=== PATIENT | female | born 1985 | race American Indian/Alaskan Native ===

== ENCOUNTER 2016-07-04 14:41 | Emergency (ER) | payer SELFPAY ==
[2016-07-04] MEDS ORDERED: BOOSTRIX IM ONE (17:14)
[2016-07-04] MEDS ORDERED: TORADOL IM ONE (17:14)
[2016-07-04] MEDS ORDERED: LET TOPICAL TP ONE (17:14)
[2016-07-04] MEDS ORDERED: XYLOCAINE 1%/ EPI 1:100,000 INFILTRATI ONE (17:14)
--- NOTE | 2016-07-04 18:46 | Emergency Department Report ---
Entered by TRACY SWANSON, acting as scribe for LAY VACA PA. - General Chief complaint: Skin/Abscess/Foreign Body Stated complaint: PAINFUL BOIL/INFECTED BITE Source: patient, family Mode of arrival: Ambulatory Limitations: No Limitations - History of Present Illness Initial comments: 30 year old female with a PMHx of PTH with first presents to the ED c/ o an abscess on right lower abdomen that began 3 days ago. Patient reports that she is unsure if she was bitten by an insect. Rates pain a 10/10 in severity. Associated symptom includes pain to abscess area, chill, and generalized weakness, but she denies fever. Reports applying warm compresses at home with no relief. Denies tobacco use and EtOH consumption. LMP 06/12/2014. complaint: abscess/boil (right lower abdomen) Onset/Timin -: days(s) Tetanus Up to Date: unsure Location: generalized (right lower quadrant abdomen) Severity: severe Severity scale (0 -10): 10 Quality: sharp, other (Throbbing) Consistency: constant Improves with: immobilization Worsens with: palpation, movement, other (warm compresses with no relief) Context: none Associated symptoms: denies other symptoms, chills Treatments Prior to Arrival: other (warm compresses and also used razor blade to open area) - Related Data Previous Rx's Medication Instructions Recorded Last Taken Type HYDROcodone/APAP 5-325 [[place] 1 each PO Q6HR PRN #12 tablet 07/04/16 Unknown Rx 5/325] Ibuprofen [Motrin] 600 mg PO Q8H PRN #15 tablet 07/04/16 Unknown Rx Sulfamethoxazole/Trimethoprim 1 each PO BID #20 tablet 07/04/16 Unknown Rx [Bactrim DS TAB] Allergies Allergy/AdvReac Type Severity Reaction Status Date / Time Penicillins Allergy Mild Swelling Verified 03/19/13 18:10 Abscess Boil HPI - HPI Chief Complaint: Skin/Abscess/Foreign Body Stated Complaint: PAINFUL BOIL/INFECTED BITE Duration: 3 Days Location: Abdomen (right lower) Severity: Moderate History: Yes Pain (right lower abdomen), Yes Insect Bite, No Fever, No Purulent Drainage, No Numbness, No Foreign Body, No Previous History Home Medications: Previous Rx's Medication Instructions Recorded Last Taken Type HYDROcodone/APAP 5-325 [[place] 1 each PO Q6HR PRN #12 tablet 07/04/16 Unknown Rx 5/325] Ibuprofen [Motrin] 600 mg PO Q8H PRN #15 tablet 07/04/16 Unknown Rx Sulfamethoxazole/Trimethoprim 1 each PO BID #20 tablet 07/04/16 Unknown Rx [Bactrim DS TAB] Allergies/Adverse Reactions: Allergies Allergy/AdvReac Type Severity Reaction Status Date / Time Penicillins Allergy Mild Swelling Verified 03/19/13 18:10 ED Review of Systems Comment: All other systems reviewed and negative Constitutional: chills, weakness (generalized) ENT: congestion. denies: throat pain Respiratory: no symptoms reported Cardiovascular: denies: chest pain, palpitations, edema, syncope Gastrointestinal: abdominal pain (right lower due to abscess). denies: nausea, vomiting, diarrhea Musculoskeletal: denies: back pain, joint swelling, arthralgia Skin: other (2x2 abscess on right lower abdomen with erythema and induration) Neurological: denies: headache ED Past Medical Hx - Past Medical History Previous Medical History?: Yes Hx Hypertension: (hx of PIH w/first ) Hx Diabetes: No Hx Deep Vein Thrombosis: No Hx Renal Disease: No Hx Sickle Cell Disease: No Hx Seizures: No Hx Asthma: No Hx HIV: No - Surgical History Past Surgical History?: No - Family History Family history: hypertension - Social History Smoking Status: Never Smoker Substance Use Type: None - Medications Home Medications: Home Medications Medication Instructions Recorded Confirmed Last Taken Type HYDROcodone/APAP 5-325 [[place] 1 each PO Q6HR PRN #12 tablet 07/04/16 Unknown Rx 5/325] Ibuprofen [Motrin] 600 mg PO Q8H PRN #15 tablet 07/04/16 Unknown Rx Sulfamethoxazole/Trimethoprim 1 each PO BID #20 tablet 07/04/16 Unknown Rx [Bactrim DS TAB] ED Physical Exam - General Limitations: No Limitations General appearance: alert, in no apparent distress - Head Head exam: Present: atraumatic, normocephalic - Eye Eye exam: Present: normal appearance, EOMI Pupils: Present: normal accommodation - ENT ENT exam: Present: normal exam, normal orophraynx, mucous membranes moist, TM's normal bilaterally, normal external ear exam - Neck Neck exam: Present: normal inspection, full ROM. Absent: tenderness, lymphadenopathy - Respiratory Respiratory exam: Present: normal lung sounds bilaterally. Absent: respiratory distress, chest wall tenderness - Cardiovascular Cardiovascular Exam: Present: regular rate, normal rhythm, normal heart sounds - GI/Abdominal GI/Abdominal exam: Present: soft, tenderness (right lower abdomen around abscess ), normal bowel sounds, other (right lower abdominal erythema, 2x2 cm abscess with induration and point of entry noted to center of abscess). Absent: distended, guarding, rebound, rigid - Extremities Exam Extremities exam: Present: normal inspection, full ROM, normal capillary refill. Absent: tenderness, pedal edema, joint swelling, calf tenderness - Back Exam Back exam: Present: normal inspection, full ROM. Absent: tenderness, CVA tenderness (R), CVA tenderness (L), muscle spasm, paraspinal tenderness, vertebral tenderness, rash noted - Neurological Exam Neurological exam: Present: alert, oriented X3, normal gait, reflexes normal. Absent: motor sensory deficit - Psychiatric Psychiatric exam: Present: normal affect, normal mood - Skin Skin exam: Present: warm, dry, intact, erythema (right lower abdomen), other ( 2x2 cm abscess with induration and point of entry noted to center of abscess). Absent: rash, abrasion, ecchymosis - Expanded Skin Exam Expanded Type of lesion: Present: abscess Distribution of rash: abdomen (lower quadrant abdomen) Description of rash: Present: size (2 x 2 centimeter), tenderness, erythematous , swelling, fluctuant, indurated. Absent: crusting, discharge ED Course Vital Signs 07/04/16 14:47 Temperature 98.2 F Pulse Rate 82 Respiratory 20 Rate Blood Pressure 108/67 O2 Sat by Pulse 100 Oximetry - Reevaluation(s) Reevaluation #1: 07/04/16 18:39 given Toradol 60 mg IM prior to procedure. Topical LET applied site for 10 minutes. See procedure note for details. - I & D Right Lower Abdomen Type of Procedure: Complex Site: right lower quadrant abdomen Blade Size: topical let applied to site I & D Procedure: betadine prep, sterile drapes applied, sterile dressing applied , gauze wick placed ED Medical Decision Making - Medical Decision Making ED Course: Patient received Toradol 60 mg IM and emergency room prior to incision and drainage of abscess. Her tetanus shot was updated as she was unsure when her last tetanus vaccine was. See procedure note for details and incision and drainage. Instructed to patient that she needs to return in 4 days to have packing removed. Condition discharged home with prescription for Calypso, Motrin and Bactrim. ED Disposition Clinical Impression: Cellulitis and abscess of trunk, Encounter for incision and drainage procedure Disposition: DISCHARGED TO HOME OR SELFCARE Is pt being admited?: No Does the pt Need Aspirin: No Condition: Stable Instructions: Abscess Incision and Drainage (ED), Cellulitis (ED) Additional Instructions: keep affected area clean and dry. Can apply warm compresses decided 3-4 times a day to facilitate soft and drainage of remainder of pus. Take Antibiotic as prescribed. Do not drive or operative heavy machinery while on Calypso as this medication will cause drowsiness. return to emergency room in 4 days for removal of packing and reevaluation of abscess. Prescriptions: HYDROcodone/APAP 5-325 [[place] 5/325] 1 each PO Q6HR PRN #12 tablet PRN Reason: Pain Ibuprofen [Motrin] 600 mg PO Q8H PRN #15 tablet PRN Reason: Pain Sulfamethoxazole/Trimethoprim [Bactrim DS TAB] 1 each PO BID #20 tablet Referrals: PRIMARY CARE,MD [Primary Care Provider] - 3-5 Days Your, PCP [Other] - 2-3 Days Forms: Work/School Release Form(ED) This documentation as recorded by the KIKI terrazas JASMINE,accurately reflects the service I personally performed and the decisions made by me,LAY VACA PA.
[2016-07-04 18:57] VITALS: BP 116/58
== END 2016-07-04 18:56 | disposition home or self-care (01) ==
LOC: ED 14:41
DX: L02.211 Cutaneous abscess of abdominal wall (principal); Z88.0 Allergy status to penicillin
CPT/HCPCS: 10061; 90471; 90715; 96372; 99282; J1885

== ENCOUNTER 2016-07-08 14:32 | Emergency (ER) | payer SELFPAY ==
[2016-07-08 14:51] VITALS: BP 107/76
--- NOTE | 2016-07-09 22:07 | Emergency Department Report ---
Entered by TRACY SWANSON, acting as scribe for JOHNNY JAY NP. ED Recheck HPI - General Chief Complaint: Laceration/Recheck/Suture Stated Complaint: WOUND ASSESSMENT Time Seen by Provider: 07/08/16 17:16 Source: patient Mode of arrival: Ambulatory Limitations: No Limitations - History of Present Illness Initial Comments: 30 year old female with a PMHx of PTH during her first presents to the ED c/o abscess rechecked that began 4 days ago. Patient was seen in this ED on 07/04/2016 to have an abscess on her right lower abdomen lanced and packed. She was prescribed Bactrim antibiotics BID for 10 days, and Hydrocodone and Motrin for pain. Associated symptom include aching pain around affected area, purulent drainage, and slight bleeding, but she denies fever, chills, nausea, vomiting, numbness, tingling, and SOB. Rates right lower abdomen pain a 1/10 in severity. In the ED, the dressings does not appear to have any purulent drainage present. LMP 07/04/2016. Allergic to penicillins. Complaint: wound re-check (07/04/2016) Onset/Timin -: days(s) Initial Visit For: abscess (right lower abdomen) Returns Today for: wound recheck (right lower abdomen) Symptoms Since Prior Visit: no new symptoms, improved Context: planned re-check Associated Symptoms: abdominal pain (right lower abdominal pain due to abscess) . denies: fever, chills, chest pain, shortness of breath, rash, nasuea, other ( nausea, vomiting, numbness, and tingling, but reports minimal bleeding and purulent drainage from abscess) Treatments Prior to Arrival: dressings, other (bactrim antibiotics) - Related Data Previous Rx's Medication Instructions Recorded Last Taken Type HYDROcodone/APAP 5-325 [[place] 1 each PO Q6HR PRN #12 tablet 07/04/16 Unknown Rx 5/325] Ibuprofen [Motrin] 600 mg PO Q8H PRN #15 tablet 07/04/16 Unknown Rx Sulfamethoxazole/Trimethoprim 1 each PO BID #20 tablet 07/04/16 Unknown Rx [Bactrim DS TAB] Allergies Allergy/AdvReac Type Severity Reaction Status Date / Time Penicillins Allergy Mild Swelling Verified 03/19/13 18:10 ED Review of Systems Comment: All other systems reviewed and negative Constitutional: denies: chills, fever, other (tingling) Respiratory: denies: orthopnea, shortness of breath, SOB with exertion, SOB at rest Cardiovascular: denies: chest pain, dyspnea on exertion, orthopnea Gastrointestinal: denies: nausea, vomiting Skin: other (minimal bleeding adn purulent drainage from abscess on right lower abdomen). denies: rash Neurological: denies: numbness ED Past Medical Hx - Past Medical History Previous Medical History?: Yes Hx Hypertension: (hx of PIH w/first ) Hx Diabetes: No Hx Deep Vein Thrombosis: No Hx Renal Disease: No Hx Sickle Cell Disease: No Hx Seizures: No Hx Asthma: No Hx HIV: No Additional medical history: Boil/abscess - Surgical History Past Surgical History?: No - Social History Smoking Status: Never Smoker Substance Use Type: Alcohol, Prescribed - Medications Home Medications: Home Medications Medication Instructions Recorded Confirmed Last Taken Type HYDROcodone/APAP 5-325 [[place] 1 each PO Q6HR PRN #12 tablet 07/04/16 Unknown Rx 5/325] Ibuprofen [Motrin] 600 mg PO Q8H PRN #15 tablet 07/04/16 Unknown Rx Sulfamethoxazole/Trimethoprim 1 each PO BID #20 tablet 07/04/16 Unknown Rx [Bactrim DS TAB] ED Physical Exam - General Limitations: No Limitations General appearance: alert, in no apparent distress - Head Head exam: Present: atraumatic, normocephalic - Eye Eye exam: Present: normal appearance, EOMI Pupils: Present: normal accommodation - ENT ENT exam: Present: normal exam, mucous membranes moist - Neck Neck exam: Present: normal inspection, full ROM - Respiratory Respiratory exam: Present: normal lung sounds bilaterally. Absent: respiratory distress - Cardiovascular Cardiovascular Exam: Present: regular rate, normal rhythm - GI/Abdominal GI/Abdominal exam: Present: soft, other (slight purulent drainage from abscess on right lower abdomen). Absent: distended, tenderness, guarding, rebound, rigid - Extremities Exam Extremities exam: Present: normal inspection, full ROM - Back Exam Back exam: Present: normal inspection, full ROM - Neurological Exam Neurological exam: Present: alert, oriented X3 - Psychiatric Psychiatric exam: Present: normal affect, normal mood - Skin Skin exam: Present: warm, dry, intact, other (slight purlent drainage from abscess on right lower abdomen). Absent: rash, erythema (slight purulent drainage in abscess on right lower abdomen) ED Course Vital Signs 07/08/16 14:47 Temperature 98.5 F Pulse Rate 66 Respiratory 20 Rate Blood Pressure 107/76 O2 Sat by Pulse 100 Oximetry ED Recheck MDM - Medical Decision Making This is a 30-year-old female that presents with a recheck of an I&D in the right lower abdomen 1- after removing iodoform packing there were still minimal to moderate pus noted. 2- I irrigated the wound with normal saline with 40 mL. Patient daughter well with no signs of any distress noted. 3- I reapplied new iodoform one fourth to the area and instructed patient to remove in 48 hours. 4- patient stated still taking Bactrim as prescribed during initial encounter in the ER. 5- at the time of discharge the patient denies seeing toxic or ill appearance. Patient agrees to discharge plan and treatment. No further questions noted. ED Disposition Clinical Impression: Encounter for wound re-check, Change or removal of wound packing Disposition: DISCHARGED TO HOME OR SELFCARE Is pt being admited?: No Does the pt Need Aspirin: No Condition: Stable Instructions: Acute Wound Care (ED) Additional Instructions: Please keep area clean and dry. Remove packing in 48 hours. If Symptoms worsen and more pus, redness, inflammation, fever or chills noted report back to emergency room. Referrals: PRIMARY CARE,MD [Primary Care Provider] - 3-5 Days This documentation as recorded by the KIKI terrazas JASMINE,accurately reflects the service I personally performed and the decisions made by ,JOHNNY JAY, JONE.
== END 2016-07-08 18:08 | disposition home or self-care (01) ==
LOC: ED 14:32
DX: Z48.01 Encounter for change or removal of surgical wound dressing (principal); Z88.0 Allergy status to penicillin

== ENCOUNTER 2017-01-12 09:05 | Emergency (ER) | payer SELFPAY ==
--- NOTE | 2017-01-12 11:54 | Emergency Department Report ---
ED ENT HPI - General Chief complaint: Earache Stated complaint: LEFT EAR PAIN Time Seen by Provider: 01/12/17 11:09 Source: patient Mode of arrival: Ambulatory Limitations: No Limitations - History of Present Illness Initial comments: This is a 31-year-old female nontoxic, well nourished in appearance, no acute signs of distress presents to the ED complaining of left earache and sore throat 1 week. Patient describes sore throat as aching level is 6 out of 10. Patient describes earache as aching with level of 10/10. Patietn also states has a dry nonproductive cough. Patient denies shrotness of breathe, decreased hearing, nausea, vomiting, chest pain, mastoid tenderness, tragus pain, ear discharge, headache, stiff neck, numbness or tingling. Patient denies difficulty breathing. Patient states allergies to penicillin with type I. Patient denies past medical history besides asthma. MD complaint: sore throat, ear pain -: week(s) (1) Location: L ear, throat Severity: mild Severity scale (0 -10): 8 Quality: aching Consistency: constant Improves with: none Worsens with: none Associated Symptoms: cough (dry), pain with swallowing, sore throat. denies: fever, gum swelling, toothache, tinnitus, hearing loss, discharge from ear, rhinorrhea - Related Data Previous Rx's Medication Instructions Recorded Last Taken Type HYDROcodone/APAP 5-325 [[place] 1 each PO Q6HR PRN #12 tablet 07/04/16 Unknown Rx 5/325] Ibuprofen [Motrin] 600 mg PO Q8H PRN #15 tablet 07/04/16 Unknown Rx Sulfamethoxazole/Trimethoprim 1 each PO BID #20 tablet 07/04/16 Unknown Rx [Bactrim DS TAB] Azithromycin [Zithromax Z-TALA] 250 mg PO DAILY #6 tablet 01/12/17 Unknown Rx Nystas/Diphen/Xyl Visc/Mylanta 15 ml MM Q8H PRN 10 Days 01/12/17 Unknown Rx [Magic Mouthwash] Allergies Allergy/AdvReac Type Severity Reaction Status Date / Time Penicillins Allergy Mild Swelling Verified 03/19/13 18:10 ED Dental HPI - General Chief complaint: Earache Stated complaint: LEFT EAR PAIN Time Seen by Provider: 01/12/17 11:09 Source: patient Mode of arrival: Ambulatory Limitations: No Limitations - Related Data Previous Rx's Medication Instructions Recorded Last Taken Type HYDROcodone/APAP 5-325 [[place] 1 each PO Q6HR PRN #12 tablet 07/04/16 Unknown Rx 5/325] Ibuprofen [Motrin] 600 mg PO Q8H PRN #15 tablet 07/04/16 Unknown Rx Sulfamethoxazole/Trimethoprim 1 each PO BID #20 tablet 07/04/16 Unknown Rx [Bactrim DS TAB] Azithromycin [Zithromax Z-TALA] 250 mg PO DAILY #6 tablet 01/12/17 Unknown Rx Nystas/Diphen/Xyl Visc/Mylanta 15 ml MM Q8H PRN 10 Days 01/12/17 Unknown Rx [Magic Mouthwash] Allergies Allergy/AdvReac Type Severity Reaction Status Date / Time Penicillins Allergy Mild Swelling Verified 03/19/13 18:10 ED Review of Systems ROS: Stated complaint: LEFT EAR PAIN Other details as noted in HPI Constitutional: denies: chills, fever Eyes: denies: eye pain, eye discharge, vision change ENT: ear pain, throat pain Respiratory: cough. denies: shortness of breath, wheezing Cardiovascular: denies: chest pain, palpitations Endocrine: no symptoms reported Gastrointestinal: denies: abdominal pain, nausea, diarrhea Genitourinary: denies: urgency, dysuria, discharge Musculoskeletal: denies: back pain, joint swelling, arthralgia Skin: denies: rash, lesions Neurological: denies: headache, weakness, paresthesias Psychiatric: denies: anxiety, depression Hematological/Lymphatic: denies: easy bleeding, easy bruising ED Past Medical Hx - Past Medical History Previous Medical History?: Yes Hx Hypertension: (hx of PIH w/first ) Hx Diabetes: No Hx Deep Vein Thrombosis: No Hx Renal Disease: No Hx Sickle Cell Disease: No Hx Seizures: No Hx Asthma: No Hx HIV: No Additional medical history: Boil/abscess, Vaginal delivery x 3 - Surgical History Past Surgical History?: No - Social History Smoking Status: Never Smoker Substance Use Type: Other - Medications Home Medications: Home Medications Medication Instructions Recorded Confirmed Last Taken Type HYDROcodone/APAP 5-325 [[place] 1 each PO Q6HR PRN #12 tablet 07/04/16 Unknown Rx 5/325] Ibuprofen [Motrin] 600 mg PO Q8H PRN #15 tablet 07/04/16 Unknown Rx Sulfamethoxazole/Trimethoprim 1 each PO BID #20 tablet 07/04/16 Unknown Rx [Bactrim DS TAB] Azithromycin [Zithromax Z-TALA] 250 mg PO DAILY #6 tablet 01/12/17 Unknown Rx Nystas/Diphen/Xyl Visc/Mylanta 15 ml MM Q8H PRN 10 Days 01/12/17 Unknown Rx [Magic Mouthwash] ED Physical Exam - General Limitations: No Limitations General appearance: alert, in no apparent distress - Head Head exam: Present: atraumatic, normocephalic - Eye Eye exam: Present: normal appearance, PERRL, EOMI. Absent: scleral icterus, conjunctival injection, nystagmus, periorbital swelling, periorbital tenderness Pupils: Present: normal accommodation - ENT ENT exam: Present: mucous membranes moist - Expanded ENT Exam Expanded TM/Canal exam: Erythema: Left TM, Bulging: Left TM Mouth exam: Present: normal external inspection, tongue normal. Absent: drooling, trismus, muffled voice, tongue elevation, laceration Teeth exam: Present: normal inspection Throat exam: Positive: tonsillar erythema, tonsillomegaly (2+). Negative: tonsillar exudate, R peritonsillar mass, L peritonsillar mass - Neck Neck exam: Present: normal inspection, full ROM. Absent: tenderness, meningismus, lymphadenopathy, thyromegaly - Respiratory Respiratory exam: Present: normal lung sounds bilaterally. Absent: respiratory distress, wheezes, rales, rhonchi, stridor, chest wall tenderness, accessory muscle use, decreased breath sounds, prolonged expiratory - Cardiovascular Cardiovascular Exam: Present: regular rate, normal rhythm, normal heart sounds. Absent: bradycardia, tachycardia, irregular rhythm, systolic murmur, diastolic murmur, rubs, gallop - GI/Abdominal GI/Abdominal exam: Present: soft, normal bowel sounds. Absent: distended, tenderness, guarding, rebound, rigid, diminished bowel sounds - Rectal Rectal exam: Present: deferred - Extremities Exam Extremities exam: Present: normal inspection, full ROM, normal capillary refill. Absent: tenderness, pedal edema, joint swelling, calf tenderness - Back Exam Back exam: Present: normal inspection, full ROM. Absent: tenderness, CVA tenderness (R), CVA tenderness (L), muscle spasm, paraspinal tenderness, vertebral tenderness, rash noted - Neurological Exam Neurological exam: Present: alert, oriented X3, CN II-XII intact, normal gait, reflexes normal - Psychiatric Psychiatric exam: Present: normal affect, normal mood - Skin Skin exam: Present: warm, dry, intact, normal color. Absent: rash ED Course Vital Signs 01/12/17 09:12 Temperature 98.5 F Pulse Rate 67 Respiratory 20 Rate Blood Pressure 107/70 O2 Sat by Pulse 100 Oximetry - Reevaluation(s) Reevaluation #1: 01/12/17 11:57 Patient is speaking in full sentences with no signs of distress noted. Reevaluation #2: 01/12/17 11:58 Patient stated sore throat has subsided after receiving viscous lidocaine in ED Critical care attestation.: If time is entered above; I have spent that time in minutes in the direct care of this critically ill patient, excluding procedure time. ED Disposition Clinical Impression: Tonsillitis, Cough Otitis media Qualifiers: Otitis media type: unspecified Laterality: left Qualified Code(s): H66.92 - Otitis media, unspecified, left ear Disposition: DC-01 TO HOME OR SELFCARE Is pt being admited?: No Does the pt Need Aspirin: No Condition: Stable Instructions: Azithromycin (By mouth), Otitis Media (ED), Tonsillitis (ED) Additional Instructions: Follow-up with a primary care doctor in 3-5 days or if symptoms worsen and continue return to emergency room as soon as possible possible. Prescriptions: Azithromycin [Zithromax Z-TALA] 250 mg PO DAILY #6 tablet Nystas/Diphen/Xyl Visc/Mylanta [Magic Mouthwash] 15 ml MM Q8H PRN 10 Days PRN Reason: Sore Throat Referrals: PRIMARY CARE, [Primary Care Provider] - 3-5 Days LETITIA NATARAJAN MD [Staff Physician] - 3-5 Days [facility] [Outside] - 3-5 Days [facility] [Outside] - 3-5 Days Forms: Work/School Release Form(ED)
[2017-01-12] MEDS ORDERED: LIDOCAINE VISCOUS 2% MM NR (12:00)
[2017-01-12 12:41] VITALS: BP 110/70
== END 2017-01-12 12:20 | disposition home or self-care (01) ==
LOC: ED 09:05
DX: H66.92 Otitis media, unspecified, left ear (principal); J03.90 Acute tonsillitis, unspecified; Z88.0 Allergy status to penicillin
CPT/HCPCS: 99282